=== PATIENT | female | born 2000 | race Caucasian/White ===

== ENCOUNTER → 2021-03-28 06:43 | Outpatient (CLI) | payer OTHER, SELFPAY ==
--- NOTE | 2021-03-28 06:47 | DI.MRI.S_ITS ---
PROCEDURE: MR HEAD/BRAIN WO CON INDICATIONS: Chronic migraine without aura, intractable, withou TECHNIQUE: Noncontrast axial T1 spin echo, axial T2 fast spin echo, sagittal and axial FLAIR, coronal T2 fast spin echo, axial gradient echo, axial diffusion and ADC through the brain. COMPARISON: Outside Film, CT, CT SINUS WITHOUT CONTRAST, 02/19/2021, 14:21. FINDINGS: Image quality: Excellent. CSF Spaces: Basal cisterns are patent. Small 1.2 by 0.8 centimeter right arachnoid cyst noted in the right perihippocampal sulcus. Ventricles are normal in size and shape. Brain: No intracranial masses or hemorrhage. Becerril/white matter interface is normal. Brainstem appears normal. Diffusion-weighted images demonstrate no acute ischemic insult. No chronic ischemic insults. Normal intravascular flow voids are present. Skull and face: Calvarium has normal marrow signal. Orbits appear normal. Sinuses: Polypoid mucosal thickening noted in the maxillary sinuses bilaterally, the ethmoid air cells bilaterally and the frontal sinuses bilaterally. The mastoids are clear. IMPRESSION: 1. No intracranial disease process. 2. No abnormal intracranial mass or mass effect. 3. No acute or chronic intracranial hemorrhage. 4. Severe chronic right maxillary sinusitis. Moderate chronic left maxillary, bilateral ethmoid air cell and bilateral frontal sinusitis. Dictated by: Nicolette Campbell MD, PhD on 03/28/2021 at 11:12 Approved by: Nicolette Campbell MD, PhD on 03/28/2021 at 11:19
== END ==
PROVIDERS: Referring Provider Psychiatry & Neurology Neurology; Visit Provider Psychiatry & Neurology Neurology
DX: G43.719 Chronic migraine without aura, intractable, without status migrainosus (principal); J01.00 Acute maxillary sinusitis, unspecified; J01.10 Acute frontal sinusitis, unspecified; J01.20 Acute ethmoidal sinusitis, unspecified; Z82.0 Family history of epilepsy and other diseases of the nervous system; Z86.61 Personal history of infections of the central nervous system
CPT/HCPCS: 70551